=== PATIENT | male | born 1975 | race African-American/Black ===

== ENCOUNTER 2023-06-21 04:49 | Day surgery (SDC) | payer OTHER ==
[2023-06-20 08:21] VITALS: BMI 22.6
[2023-06-21 14:13] VITALS: TEMP 97
[2023-06-21 14:43] VITALS: PULSE 55
[2023-06-21 14:44] VITALS: BP 112/73; RESP 18
== END 2023-06-21 14:47 | disposition home or self-care (01) ==
LOC: JASU-ENDO 04:49
PROVIDERS: ATTEND Internal Medicine Gastroenterology
PROC: 0DJD8ZZ Inspection of Lower Intestinal Tract, Via Natural or Artificial Opening Endoscopic (ICD-10-PCS; principal; 2023-06-21 13:30)
DX: Z12.11 Encounter for screening for malignant neoplasm of colon (principal); K63.89 Other specified diseases of intestine